=== PATIENT | male | born 1990 | race African-American/Black ===

== ENCOUNTER 2024-07-14 10:10 | Emergency (ER) | payer MEDICAID ==
[~2024-07-14] VITALS: Ht 180.3 cm; Wt 65.0 kg
[2024-07-14 10:20] VITALS: O2SAT 100
[2024-07-14] MEDS ORDERED: ALPR-340 MT (11:57)
[2024-07-14] MEDS ORDERED: TOPUD PO (11:57)
[2024-07-14] MEDS ORDERED: IBUP-2029 MT (11:57)
[2024-07-14] MEDS: IBUPROFEN 600MG TABLET PO ONE (12:19)
[2024-07-14 12:21] VITALS: BP 118/68; PULSE 62; RESP 16; TEMP 36.72516; O2SAT 100
== END 2024-07-14 13:26 | disposition home or self-care (01) ==
LOC: ER 10:10
DX: L03.011 Cellulitis of right finger (principal); Z98.890 Other specified postprocedural states
CPT/HCPCS: 99282